=== PATIENT | male | born 1990 | race Caucasian/White ===

== ENCOUNTER 2022-04-02 12:38 | Emergency (ER) | payer OTHER ==
[~2022-04-02] VITALS: Ht 177.8 cm; Wt 93.2 kg
[2022-04-02 13:10] VITALS: BP 130/69
[2022-04-02] MEDS ORDERED: CARBAMIDE PEROXIDE 6.5% 15 ML OTIC SOLUTION AU ONE (13:30)
== END 2022-04-02 13:43 | disposition home or self-care (01) ==
LOC: EMS 12:38
DX: H61.23 Impacted cerumen, bilateral (principal)
CPT/HCPCS: 69210; 99282; 99284; Z7502; Z7610